=== PATIENT | male | born 1980 | race Caucasian/White ===

== ENCOUNTER → 2024-07-01 | Outpatient (CLI) | payer OTHER, SELFPAY ==
--- NOTE | 2024-07-01 14:40 | XR_ITS ---
Examination: Abdomen sonogram, complete Date and time of exam: July 01, 2024 1452 hours INDICATIONS: Abdominal pain and difficulty raising 2 days. Technique: Multiple real-time grayscale transabdominal sonographic images of the abdomen have been obtained. Findings: Contracted gallbladder Common bile duct 0.4 cm Pancreatic head 2.6 cm Aorta not enlarged Liver 15.3 cm fatty infiltration Normal hepatopedal portal venous flow Patent IVC Right kidney 10.4 cm renal cortex 3.0 cm Left kidney 10.1 cm cortex 3.0 cm Mild renal parenchymal scar formation Spleen 9.4 cm IMPRESSION: Recommend repeating the gallbladder portion of the study with fasting
== END | disposition home or self-care (01) ==
LOC: CDIM 14:29
PROVIDERS: PCP Family Medicine; Referring Provider Student in an Organized Health Care Education/Training Program; Visit Provider Student in an Organized Health Care Education/Training Program
DX: R10.9 Unspecified abdominal pain (principal)
CPT/HCPCS: 76700